=== PATIENT | male | born 1990 | race African-American/Black ===

== ENCOUNTER 2020-05-16 21:41 | Emergency (ER) | payer MEDICAID ==
[~2020-05-16] VITALS: Ht 188 cm; Wt 104.3 kg
--- NOTE | 2020-05-16 22:22 | Emergency Room Report ---
History of Present Illness General Chief Complaint: Flu Like Symptoms Source: Patient Present Illness HPI This a 29-year-old male with a history of HIV. 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 He presents with chief complaint of fever chills and body pain. Onset for last 2 to 3 days. He felt weak and tired. Body is aching all over. Pain is 9 out of 10. Fever is better with Tylenol. No nausea vomiting or diarrhea. Decreased appetite. He said that he tested positive for Covid in September 2019. He had marked taste and smell despite he went get tested. He had the first dose of the vaccine on April 25. Before count is normal and his viral load is undetectable. 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 COVID-19 Screening: Negative COVID-19 COVID-19 Testing Source: [facility] Patient History Past Medical History: HIV Past Surgical History: none Pertinent Family History: none Social History: Denies: smoking Immunizations: other Reviewed Nursing Documentation: PMH: Agreed; PSxH: Agreed Nursing Documentation-PMH Past Medical History: No History, Except For Hx Asthma: Yes Review of Systems Constitutional: Reports: chills, fever, malaise, weakness Eye: Denies: eye pain, blurred vision ENT: Denies: ear pain, nose congestion, throat swelling Respiratory: Denies: cough, shortness of breath Cardiovascular: Denies: chest pain, palpitations Gastrointestinal: Denies: abdominal pain, diarrhea, nausea, vomiting Musculoskeletal: Reports: joint pain, muscle pain; Denies: back pain Skin: Denies: rash Neurological: Denies: headache, numbness Endocrine: Denies: increased thirst, increased urine Hematologic/Lymphatic: Denies: easy bruising All Other Systems: negative except mentioned in HPI Physical Exam Vital Signs Date Time Temp Pulse Resp B/P (MAP) Pulse Ox O2 Delivery O2 Flow Rate FiO2 05/16/20 21:58 100.2 100 20 140/75 (96) 96 Room Air Vitals with low-grade fever Sp02 EP Interpretation: reviewed, normal General Appearance: no apparent distress, alert, other - Ill-appearing Head: normocephalic, atraumatic Eyes: bilateral eye PERRL, bilateral eye EOMI ENT: hearing grossly normal, normal pharynx Neck: full range of motion, supple, no meningismus Respiratory: chest non-tender, lungs clear, normal breath sounds Cardiovascular #1: regular rate, rhythm, no murmur Gastrointestinal: normal bowel sounds, non tender, no mass, no organomegaly, no bruit, non-distended Musculoskeletal: back normal, normal range of motion, gait/station normal Psychiatric: mood/affect normal Medical Decision Making Diagnostic Impression: Primary Impression: Influenza-like symptoms ER Course This patient presents with flulike illness. His influenza is negative here. Covid testing sent. His case is little complicated and confounding because he tested positive in September. He received 1 dose of Covid vaccine 2 weeks ago. He does have risk factor that he works at [employer]. His inflammatory markers are also elevated. His Covid positive test was in September 2019 however. His antibody may have waned. Told patient to assume that he has Covid. He has no respiratory distress however. Oxygenation is normal and CT scan is negative for any pneumonia. No evidence of any PE. No evidence of any other infectious source. Rhythm Strip Diag. Results EP Interpretation: yes Rate: 60 Rhythm: NSR, no PVC's, no ectopy Chest X-Ray Diagnostic Results Chest X-Ray Diagnostic Results : Chest X-Ray Ordered: Yes # of Views/Limited/Complete: 1 View Indication: Shortness of Breath EP Interpretation: Yes Interpretation: no consolidation, no effusion, no pneumothorax, no acute cardiopulmonary disease Impression: No acute disease Electronically Signed by: Reece Merritt MD CT/MRI/US Diagnostic Results CT/MRI/US Diagnostic Results : Imaging Test Ordered: CT chest Last Vital Signs Date Time Temp Pulse Resp B/P (MAP) Pulse Ox O2 Delivery O2 Flow Rate FiO2 05/16/20 21:58 100.2 100 20 140/75 (96) 96 Room Air Status: improved Disposition: HOME, SELF-CARE Condition: Stable Scripts Ibuprofen* (MOTRIN*) 600 Mg Tablet 600 MG ORAL Q6H PRN for For Pain, #30 TAB 0 Refills Prov: Reece Merritt MD 05/17/20 Dexamethasone (Decadron) 6 Mg Tablet 6 MG PO DAILY, #5 TAB Prov: Reece Merritt MD 05/17/20 Additional Instructions: Assume that you have Covid for now. Testing results should be back in 2 to 5 days. Practice good handwashing, wearing mask and social distancing. Follow-up your doctor in a week. Return if symptoms worsen. Reece Merritt MD May 16, 2020 22:22
[2020-05-16] MEDS ORDERED: Ketorolac 30mg Inj IV ONE (22:30)
[2020-05-16] MEDS ORDERED: dexAMETHasone 10mg/ml Inj IV ONE (22:30)
--- NOTE | 2020-05-16 22:55 | NUR ---
ED Nurse Note: Pt ambulated into ED, AAO x4, c/o cough, fever, body aches x4 days. Had first covid-19 vaccine at the end of April. Pt also c/o right-side head/ear pain. IV started, bloodwork and covid/flu swabs sent to lab.
[2020-05-16 22:58] VITALS: BP 140/75
[2020-05-16 23:14] LABS: BASOPHILS % (AUTO) 1.8 % (0.0-2.0); EOSINOPHILS % (AUTO) 0.2 % (0.0-3.0); HEMATOCRIT 46.1 % (42.0-52.0); HEMOGLOBIN 14.5 G/DL (14.2-18.0); LYMPHOCYTES % (AUTO) 27.4 % (20.0-45.0); MEAN CORPUSCULAR VOLUME 80 FL (80-99); MONOCYTES % (AUTO) 7.5 % (1.0-10.0); NEUTROPHILS % (AUTO) 63.2 % (45.0-75.0); PLATELET COUNT 209 K/UL (150-450); RED BLOOD COUNT 5.78 M/UL (4.70-6.10); RED CELL DISTRIBUTION WIDTH 15.9 % (11.6-14.8); WHITE BLOOD COUNT 13.2 K/UL (4.8-10.8)
[2020-05-16 23:16] LABS: ANION GAP 8 mmol/L (5-15); BLOOD UREA NITROGEN 9 mg/dL (7-18); CALCIUM 9.3 MG/DL (8.5-10.1); CARBON DIOXIDE 27 MMOL/L (21-32); CHLORIDE 100 MMOL/L (98-107); CREATININE 1.4 MG/DL (0.55-1.30); POTASSIUM 3.8 MMOL/L (3.5-5.1); SODIUM 135 MMOL/L (136-145)
[2020-05-16 23:32] LABS: FERRITIN 224 NG/ML (8-388); LACTATE DEHYDROGENASE 296 U/L (81-234)
[2020-05-16] MEDS ORDERED: Omnipaque 350 100ml vial INJ PRN (23:45)
--- NOTE | 2020-05-16 23:57 | NUR ---
ED Nurse Note: Pt asking for water, advised pt he could not have water until tests are back. Pt has no other needs at this time.
--- NOTE | 2020-05-17 00:19 | NUR ---
ED Nurse Note: Have requested urine from pt multiple times. Pt reports he will let me know when he has a sample. Pt waiting to go to CT.
[2020-05-17 01:06] LABS: APPEARANCE,URINE CLEAR; BILIRUBIN, URINE NEGATIVE (NEGATIVE); COLOR,URINE PALE YELLOW; GLUCOSE, URINE (UA) NEGATIVE (NEGATIVE); KETONES,URINE NEGATIVE (NEGATIVE); LEUKOCYTE ESTERASE ,URINE NEGATIVE (NEGATIVE); NITRITE,URINE NEGATIVE (NEGATIVE); PH,URINE 6 (4.5-8.0); PROTEIN,URINE NEGATIVE (NEGATIVE); UROBILINOGEN,URINE NORMAL MG/DL (0.0-1.0)
[2020-05-17 01:47] VITALS: BP 112/60
--- NOTE | 2020-05-17 01:48 | NUR ---
ED Nurse Note: Pt went to CT.
--- NOTE | 2020-05-17 02:21 | Diagnostic Imaging Report ---
EXAM: CT Angiography Chest With Intravenous Contrast CLINICAL HISTORY: SOB TECHNIQUE: Axial computed tomographic angiography images of the chest with intravenous contrast. CTDI is 72.4 mGy and DLP is 430.5 mGy-cm. One or more of the following dose reduction techniques were used: automated exposure control, adjustment of the mA and/or kV according to patient size, use of iterative reconstruction technique. MIP reconstructed images were created and reviewed. COMPARISON: No relevant prior studies available. FINDINGS: Pulmonary arteries: No filling defects. Aorta: No thoracic aortic aneurysm. Lungs: No mass. No consolidation. Pleural space: No pneumothorax. No effusion. Heart: No cardiomegaly. No pericardial effusion. Bones/joints: No acute fracture or dislocation. Soft tissues: Unremarkable. Lymph nodes: No enlarged lymph nodes. IMPRESSION: No acute intrathoracic findings.
--- NOTE | 2020-05-17 02:29 | NUR ---
ED Nurse Note: Pt returned from CT. Put pt back on monitor. Pt has no needs at this time.
[2020-05-17] MEDS ORDERED: DECADRON6 MG PO (02:31)
[2020-05-17] MEDS ORDERED: IBUPROFEN600 M1 ORAL (02:31)
[2020-05-17 02:42] VITALS: BP 118/74
--- NOTE | 2020-05-17 02:46 | NUR ---
ER DISCHARGE NOTE: Patient is cleared to be discharged per ER MD, pt is aaox4, on room air, with stable vital signs. pt was given d/c and prescription instructions, pt was able to verbalize understanding, pt id band and iv site removed without complications. pt is able to ambulate with steady gait. pt took all belongings.
--- NOTE | 2020-05-17 18:58 | Diagnostic Imaging Report ---
Indication: Cough and fever Technique: One view of the chest Comparison: none Findings: Lungs and pleural spaces are clear. Heart size is normal. Impression: No acute process
== END 2020-05-17 02:46 | disposition home or self-care (01) ==
LOC: EMR 22:08
DX: J11.1 Influenza due to unidentified influenza virus with other respiratory manifestations (principal); Z86.16 Personal history of COVID-19
CPT/HCPCS: 36415; 71045; 71275; 80048; 81003; 82728; 83615; 85025; 85379; 86140; 86710; 87040; 96361; 96374; 96375; J1885; J7030; Q9967; U0004; Z7502; 99284

== ENCOUNTER 2020-05-25 00:07 | Emergency (ER) | payer MEDICAID ==
[~2020-05-25] VITALS: Ht 188 cm; Wt 104.3 kg
[~2020-05-25 00:07] MED LIST: DECADRON6 MG PO; IBUPROFEN600 M1 ORAL
--- NOTE | 2020-05-25 00:29 | Emergency Room Report ---
History of Present Illness General Chief Complaint: Flu Like Symptoms Source: Patient Present Illness HPI Disclaimer: Please note that this report is being documented using [employer] technology. This can lead to erroneous entry secondary to incorrect interpretation by the dictating instrument. HPI: 29-year-old male history of HIV with undetectable viral load presents with fatigue, chills, muscle and joint aches. Reports 1 week of symptoms. Reported a low-grade temperature of 105 yesterday but this resolved after taking Motrin. He reports loose stools but denies melena or hematochezia. Denies abdominal pain, chest pain, shortness of breath, cough or congestion. Denies sore throat, nasal congestion or ear pain. Patient was seen in this emergency department 1 week ago. Flu swab was negative during that visit. On 05/18 his Covid PCR resulted negative. Blood culture showed no growth after 5 days. Labs were wi thin normal limits. CTA was performed showing no PE or pneumonia. Patient recovered from Covid last summer and received first dose of Pfizer April 2020. He has not yet received second dose. 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 EOMI. Cardiovascular: RRR. S1 and S2 normal. No murmur appreciated Resp: Normal work of breathing. No cough, wheezing or crackles appreciated Abdomen: Abdomen is soft, nondistended. Nontender Skin: Intact. No abrasions, laceration or rash over the exposed skin MSK: Normal tone and bulk. Moving all extremities. No obvious deformity. Neuro: Awake and alert. Mentating appropriately. Medical Decision Making Diagnostic Impression: Primary Impression: Myalgia Additional Impression: Viral syndrome ER Course Is a 29-year-old male presenting with flulike symptoms 1 week duration. Patient had a comprehensive work-up on his last ER visit 1 week ago including unremarkable CTA, blood work, influenza test and Covid PCR. Blood cultures showed no growth. He has been compliant with his medication states his viral load is undetectable. He arrives afebrile and otherwise vital signs are within normal limits. Labs repeated and again are unremarkable. He received IV fluids and Toradol. Found sleeping comfortably on reevaluation. He states he feels better but needs a few days to rest. Will give a few days off work. Copies of his recent results including Covid test provided to patient. Instructed to return with new or worsening symptoms. He understands and agrees with this treatment plan. Laboratory Tests Test 05/25/20 00:30 White Blood Count 7.1 K/UL (4.8-10.8) Red Blood Count 6.04 M/UL (4.70-6.10) Hemoglobin 14.6 G/DL (14.2-18.0) Hematocrit 47.7 % (42.0-52.0) Mean Corpuscular Volume 79 FL (80-99) L Mean Corpuscular Hemoglobin 24.2 PG (27.0-31.0) L Mean Corpuscular Hemoglobin Concent 30.6 G/DL (32.0-36.0) L Red Cell Distribution Width 15.4 % (11.6-14.8) H Platelet Count 411 K/UL (150-450) Mean Platelet Volume 5.9 FL (6.5-10.1) L Neutrophils (%) (Auto) 42.8 % (45.0-75.0) L Lymphocytes (%) (Auto) 40.6 % (20.0-45.0) Monocytes (%) (Auto) 14.8 % (1.0-10.0) H Eosinophils (%) (Auto) 0.7 % (0.0-3.0) Basophils (%) (Auto) 1.1 % (0.0-2.0) Sodium Level 139 MMOL/L (136-145) Potassium Level 4.4 MMOL/L (3.5-5.1) Chloride Level 102 MMOL/L (98-107) Carbon Dioxide Level 32 MMOL/L (21-32) Anion Gap 5 mmol/L (5-15) Blood Urea Nitrogen 12 mg/dL (7-18) Creatinine 1.4 MG/DL (0.55-1.30) H Estimated Glomerular Filtration Rate > 60 mL/min (>60) Glucose Level 109 MG/DL (74-106) H Calcium Level 9.6 MG/DL (8.5-10.1) Last Vital Signs Date Time Temp Pulse Resp B/P (MAP) Pulse Ox O2 Delivery O2 Flow Rate FiO2 05/25/20 00:15 98.2 65 18 142/88 (106) 97 Room Air Disposition: HOME, SELF-CARE Condition: Stable Raymond Ambriz MD May 25, 2020 00:29
[2020-05-25] MEDS ORDERED: Ketorolac 30mg Inj IV ONE (00:30)
--- NOTE | 2020-05-25 00:30 | NUR ---
ED Nurse Note: Recievedpt walk in from home with c/o generalized weakness and diarrhea with nausea, pt was seen here last week for same s/s but states he has been feeling worse every day, pt denies chest pain but has intermittent headache at 7/10, no sob or labored breathing or cough, also denies emesis, pt immediately gowned and MD at bedside, will resume care as ordered and closely monitor.
[2020-05-25 00:48] LABS: BASOPHILS % (AUTO) 1.1 % (0.0-2.0); EOSINOPHILS % (AUTO) 0.7 % (0.0-3.0); HEMATOCRIT 47.7 % (42.0-52.0); HEMOGLOBIN 14.6 G/DL (14.2-18.0); LYMPHOCYTES % (AUTO) 40.6 % (20.0-45.0); MEAN CORPUSCULAR VOLUME 79 FL (80-99); MONOCYTES % (AUTO) 14.8 % (1.0-10.0); NEUTROPHILS % (AUTO) 42.8 % (45.0-75.0); PLATELET COUNT 411 K/UL (150-450); RED BLOOD COUNT 6.04 M/UL (4.70-6.10); RED CELL DISTRIBUTION WIDTH 15.4 % (11.6-14.8); WHITE BLOOD COUNT 7.1 K/UL (4.8-10.8)
[2020-05-25 00:59] LABS: ANION GAP 5 mmol/L (5-15); BLOOD UREA NITROGEN 12 mg/dL (7-18); CALCIUM 9.6 MG/DL (8.5-10.1); CARBON DIOXIDE 32 MMOL/L (21-32); CHLORIDE 102 MMOL/L (98-107); CREATININE 1.4 MG/DL (0.55-1.30); POTASSIUM 4.4 MMOL/L (3.5-5.1); SODIUM 139 MMOL/L (136-145)
--- NOTE | 2020-05-25 01:19 | NUR ---
ED Nurse Note: Meds given for pain effective, pt sleeping, no sob or labored breathing noted, IV fluids infusing,site intact and patent, pt on monitoring, nad or changes noted, will continue to closely monitor while waiting for results and disposition.
[2020-05-25 02:20] VITALS: BP 131/81
--- NOTE | 2020-05-25 02:35 | NUR ---
ER DISCHARGE NOTE: Patient is cleared to be discharged per ERMD, pt is aox4, on room air, with stable vital signs. pt was given dc and prescription instructions, pt was able to verbalize understanding, pt id band and iv site removed without complications. pt is able to ambulate with steady gait. pt took all belongings.
[2020-05-25 02:40] VITALS: BP 131/81
== END 2020-05-25 02:40 | disposition home or self-care (01) ==
LOC: EMR 00:41
DX: M79.10 Myalgia, unspecified site (principal); B34.9 Viral infection, unspecified; B20 Human immunodeficiency virus [HIV] disease; J45.909 Unspecified asthma, uncomplicated; Z86.16 Personal history of COVID-19
CPT/HCPCS: 36415; 80048; 85025; 96361; 96374; 96375; J1885; J2405; J7030; Z7502; 99284